=== PATIENT | female | born 1935 | race Caucasian/White ===

== ENCOUNTER 2016-08-18 14:22 | Outpatient (CLI) | payer MEDICARE, OTHER | END 2016-08-18 23:59 | DX: R60.0 Localized edema (principal); I10 Essential (primary) hypertension ==

== ENCOUNTER 2016-09-19 11:17 | Outpatient (CLI) | payer MEDICARE, OTHER | END 2016-09-19 11:18 | disposition home or self-care (01) | DX: M25.472 Effusion, left ankle (principal) ==

== ENCOUNTER 2016-11-26 16:36 | Outpatient (CLI) | payer MEDICARE, OTHER ==
--- NOTE | 2016-11-26 22:34 | Ultrasound Report ---
EXAM: LEFT LOWER EXTREMITY VENOUS ULTRASOUND EXAM DATE: 11/26/2016 05:40 PM. CLINICAL HISTORY: Dependent edema left leg. COMPARISON: None. TECHNIQUE: Real-time sonographic vascular imaging was performed by the retail asset protection specialist through the lower extremity utilizing both color-flow and Doppler spectral analysis. Multiple denial management representative static sameera ges were saved for review. FINDINGS: Common Femoral Vein (CFV): Normal. CFV-GSV Junction: Normal. Profunda Femoral Vein (PFV): Normal. Femoral Vein (FV) Prox: Normal. Femoral Vein (FV) Mid: Normal. Femoral Vein (FV) Dist: Normal. Popliteal Vein: Normal. Posterior Tibial Veins: Normal. Peroneal Veins: Normal. Contralateral Side CFV: Normal. Other: Left leg edema noted. In the region of concern in the medial left ankle, there is an ovoid het erogeneous to hypoechoic structure measuring 1.6 x 1.3 cm with evidence of hyperemic flow. IMPRESSION: 1. No superficial or deep venous thrombosis. 2. In the area of concern, hypoechoic structure could represent tendinosis versus contusion. MRI woul d be confirmatory. [facility] Referring Provider Line: [phone] SITE ID: [id number]
== END 2016-11-26 16:37 | disposition home or self-care (01) ==
LOC: DI 16:36
PROVIDERS: ATTEND Family Medicine
DX: R60.0 Localized edema (principal)

== ENCOUNTER 2016-12-09 08:00 | Outpatient (CLI) | payer MEDICARE, OTHER ==
[2016-12-09 12:39] LABS: BASOPHILS % (AUTO) 0.8 %; EOSINOPHILS # (AUTO) 0.2 10^3/uL (0.0-0.7); EOSINOPHILS % (AUTO) 3.7 %; HGB - HEMOGLOBIN 13.8 g/dL (12.0-16.0); LYMPHOCYTES % (AUTO) 46.2 %; MEAN CORPUSCULAR HEMOGLOBIN 33.1 pg (27.0-31.0); MEAN CORPUSCULAR HGB CONC 34.4 g/dL (32.0-36.0); MEAN CORPUSCULAR VOLUME 96.2 fL (81.0-99.0); MEAN PLATELET VOLUME 9.8 fL (7.9-10.8); MONOCYTES # (AUTO) 0.4 10^3/uL (0.0-1.0); MONOCYTES % (AUTO) 9.2 %; NEUTROPHILS # (AUTO) 1.7 10^3/uL (1.5-6.6); NEUTROPHILS % (AUTO) 40.1 %; NUCLEATED RED BLOOD CELLS AUTO 0.1 /100WBC; RED BLOOD COUNT 4.16 10^6/uL (4.20-5.40); RED CELL DISTRIBUTION WIDTH 13.4 % (12.0-15.0); UNCORRECTED WHITE BLOOD COUNT 4.4 x10^3/uL; WHITE BLOOD COUNT 4.4 x10^3/uL (4.8-10.8)
[2016-12-09 13:01] LABS: ALBUMIN/GLOBULIN RATIO 1.5 (1.0-2.2); BILIRUBIN,TOTAL 0.6 mg/dL (0.2-1.0); BUN - BLOOD UREA NITROGEN 12 mg/dL (6-20); CALCIUM 9.1 mg/dL (8.5-10.3); CARBON DIOXIDE - CO2 28 mmol/L (21-32); CHLORIDE 99 mmol/L (101-111); CHOL/HDL RATIO 2.7 (<4.4); CHOLESTEROL 221 mg/dL; CREATININE 0.5 mg/dL (0.4-1.0); GFR - MDRD 119 (>89); GLUCOSE 91 mg/dL (70-100); HDL CHOLESTEROL 82 mg/dL; LDL/HDL RATIO 1.5 (<4.4); POTASSIUM 3.7 mmol/L (3.5-5.0); SODIUM 133 mmol/L (135-145); TOTAL PROTEIN 6.6 g/dL (6.7-8.2); TRIGLYCERIDES 65 mg/dL; VLDL CHOLESTEROL 13 mg/dL
== END 2016-12-09 08:01 | disposition home or self-care (01) ==
LOC: LAB.N 08:00
PROVIDERS: ATTEND Family Medicine
DX: I10 Essential (primary) hypertension (principal); E55.9 Vitamin D deficiency, unspecified; Z51.81 Encounter for therapeutic drug level monitoring; M85.80 Other specified disorders of bone density and structure, unspecified site
CPT/HCPCS: 36415; 80053; 80061; 82306; 85025

== ENCOUNTER 2017-01-22 06:45 | Day surgery (SDC) | payer MEDICARE, OTHER ==
[2017-01-22] MEDS ORDERED: LACTATED RINGERS 1,000 ML IV ONE (07:15)
[2017-01-22] MEDS ORDERED: MIDAZOLAM 2 MG/2 ML VIAL IVP ONE (07:45)
[2017-01-22] MEDS ORDERED: fentaNYL 100 MCG/2 ML VIAL IVP ONE (07:45)
[2017-01-22 08:48] VITALS: BP 104/60
== END 2017-01-22 06:46 | disposition home or self-care (01) ==
LOC: SDS 06:45
PROVIDERS: ATTEND Surgery
PROC: 0DBL8ZX Excision of Transverse Colon, Via Natural or Artificial Opening Endoscopic, Diagnostic (ICD-10-PCS; 2017-01-22)
PROC: 0DBK8ZX Excision of Ascending Colon, Via Natural or Artificial Opening Endoscopic, Diagnostic (ICD-10-PCS; principal; 2017-01-22 08:15)
DX: D12.3 Benign neoplasm of transverse colon (principal); K57.90 Diverticulosis of intestine, part unspecified, without perforation or abscess without bleeding; D12.2 Benign neoplasm of ascending colon
CPT/HCPCS: 45380; 45385; J7120; 88305

== ENCOUNTER 2017-08-13 08:41 | Day surgery (SDC) | payer MEDICARE, OTHER ==
[2017-08-13] MEDS ORDERED: LACTATED RINGERS 1,000 ML IV ONE (09:13)
[2017-08-13] MEDS ORDERED: fentaNYL 100 MCG/2 ML VIAL IVP ONE (09:51)
[2017-08-13] MEDS ORDERED: MIDAZOLAM 2 MG/2 ML VIAL IVP ONE (09:51)
[2017-08-13 11:02] VITALS: BP 104/68
== END 2017-08-13 08:42 | disposition home or self-care (01) ==
LOC: SDS 08:41
PROVIDERS: ATTEND Surgery
PROC: 0DBL8ZX Excision of Transverse Colon, Via Natural or Artificial Opening Endoscopic, Diagnostic (ICD-10-PCS; 2017-08-13)
PROC: 0DBN8ZX Excision of Sigmoid Colon, Via Natural or Artificial Opening Endoscopic, Diagnostic (ICD-10-PCS; 2017-08-13)
PROC: 0DBN8ZX Excision of Sigmoid Colon, Via Natural or Artificial Opening Endoscopic, Diagnostic (ICD-10-PCS; principal; 2017-08-13 09:45)
DX: D12.3 Benign neoplasm of transverse colon (principal); K64.8 Other hemorrhoids; K62.9 Disease of anus and rectum, unspecified; I10 Essential (primary) hypertension
CPT/HCPCS: 45380; 45385; J7120

== ENCOUNTER 2017-08-19 13:58 | Outpatient (CLI) | payer MEDICARE, OTHER ==
[2017-08-19 19:05] LABS: BASOPHILS % (AUTO) 0.6 %; EOSINOPHILS # (AUTO) 0.1 10^3/uL (0.0-0.7); HGB - HEMOGLOBIN 13.2 g/dL (12.0-16.0); LYMPHOCYTES # (AUTO) 1.7 10^3/uL (1.5-3.5); LYMPHOCYTES % (AUTO) 37.2 %; MEAN CORPUSCULAR HEMOGLOBIN 31.8 pg (27.0-31.0); MEAN CORPUSCULAR HGB CONC 33.4 g/dL (32.0-36.0); MEAN CORPUSCULAR VOLUME 95.3 fL (81.0-99.0); MEAN PLATELET VOLUME 9.7 fL (7.9-10.8); MONOCYTES # (AUTO) 0.5 10^3/uL (0.0-1.0); MONOCYTES % (AUTO) 11.3 %; NEUTROPHILS # (AUTO) 2.2 10^3/uL (1.5-6.6); NEUTROPHILS % (AUTO) 47.9 %; PLT - PLATELET COUNT 194 10^3/uL (130-450); RED BLOOD COUNT 4.15 10^6/uL (4.20-5.40); RED CELL DISTRIBUTION WIDTH 13.3 % (12.0-15.0); WHITE BLOOD COUNT 4.7 x10^3/uL (4.8-10.8)
[2017-08-19 19:13] LABS: ALBUMIN/GLOBULIN RATIO 1.4 (1.0-2.2); BILIRUBIN,TOTAL 0.6 mg/dL (0.2-1.0); CALCIUM 9.4 mg/dL (8.5-10.3); CREATININE 0.7 mg/dL (0.4-1.0); TOTAL PROTEIN 6.8 g/dL (6.7-8.2)
== END 2017-08-19 13:59 ==
LOC: LAB.N 13:58
PROVIDERS: ATTEND Family Medicine
DX: R60.0 Localized edema (principal); G50.0 Trigeminal neuralgia; I10 Essential (primary) hypertension
CPT/HCPCS: 36415; 80053; 85025

== ENCOUNTER 2018-03-18 15:09 | Outpatient (CLI) | payer MEDICARE, OTHER ==
[2018-03-18 19:38] LABS: CALCIUM 9.5 mg/dL (8.5-10.3); CREATININE 0.5 mg/dL (0.4-1.0)
== END 2018-03-18 15:10 | disposition home or self-care (01) ==
LOC: LAB.N 15:09
PROVIDERS: ATTEND Family Medicine
DX: R60.0 Localized edema (principal); I10 Essential (primary) hypertension; E87.1 Hypo-osmolality and hyponatremia
CPT/HCPCS: 36415; 80048

== ENCOUNTER 2018-08-25 08:00 | Outpatient (CLI) | payer MEDICARE, OTHER ==
[2018-08-25 19:13] LABS: ALBUMIN 3.9 g/dL (3.2-5.5); ALBUMIN/GLOBULIN RATIO 1.3 (1.0-2.2); BILIRUBIN,TOTAL 0.5 mg/dL (0.2-1.0); CALCIUM 9.5 mg/dL (8.5-10.3); CREATININE 0.5 mg/dL (0.4-1.0); TOTAL PROTEIN 6.9 g/dL (6.7-8.2)
[2018-08-25 20:21] LABS: BASOPHILS % (AUTO) 0.3 %; EOSINOPHILS # (AUTO) 0.1 10^3/uL (0.0-0.7); EOSINOPHILS % (AUTO) 1.4 %; HGB - HEMOGLOBIN 13.6 g/dL (12.0-16.0); LYMPHOCYTES % (AUTO) 48.7 %; MEAN CORPUSCULAR HEMOGLOBIN 33.3 pg (27.0-31.0); MEAN CORPUSCULAR HGB CONC 34.5 g/dL (32.0-36.0); MEAN CORPUSCULAR VOLUME 96.6 fL (81.0-99.0); MEAN PLATELET VOLUME 9.7 fL (7.9-10.8); MONOCYTES # (AUTO) 0.5 10^3/uL (0.0-1.0); MONOCYTES % (AUTO) 11.7 %; NEUTROPHILS # (AUTO) 1.5 10^3/uL (1.5-6.6); NEUTROPHILS % (AUTO) 37.9 %; PLT - PLATELET COUNT 163 10^3/uL (130-450); RED BLOOD COUNT 4.08 10^6/uL (4.20-5.40); RED CELL DISTRIBUTION WIDTH 12.7 % (12.0-15.0); WHITE BLOOD COUNT 4.1 x10^3/uL (4.8-10.8)
[2018-08-25 21:51] LABS: PLATELET MORPHOLOGY 1+ GIANT PLATELETS (NORMAL); RBC MORPHOLOGY (MULTIPLE) NORMAL APPEARANCE (NORMAL)
[2018-08-25 21:52] LABS: PLATELET ESTIMATE, MANUAL NORMAL (130-450,000) (NORMAL)
== END 2018-08-25 23:59 | disposition home or self-care (01) ==
LOC: LAB.N 08:00
PROVIDERS: ATTEND Physician Assistant Medical
DX: E55.9 Vitamin D deficiency, unspecified (principal); E87.1 Hypo-osmolality and hyponatremia; D75.89 Other specified diseases of blood and blood-forming organs; M85.80 Other specified disorders of bone density and structure, unspecified site; I10 Essential (primary) hypertension
CPT/HCPCS: 36415; 80053; 82306; 85025